=== PATIENT | female | born 2000 | race Caucasian/White ===

== ENCOUNTER 2025-06-17 02:55 | Emergency (ER) | payer OTHER ==
[~2025-06-17] VITALS: Ht 177.8 cm; Wt 127.0 kg
[2025-06-17] MEDS: SODIUM CHLORIDE 0.9% 1000ML 1,000 ML IV ONE (03:57)
[2025-06-17] MEDS: ONDANSETRON HCL INJ 2MG/ML 2ML 2 MG/ML VIAL IV STA (03:57)
[2025-06-17] MEDS ORDERED: IOPAMIDOL 370 MG/ML 100 ML INFUS..BTL INJ ONE (04:07)
[2025-06-17] MEDS ORDERED: CEFTRIAXONE 1 GM VIAL ONE (07:24)
[2025-06-17] MEDS ORDERED: MACROBID 100 M100 MG PO (07:52)
[2025-06-17] MEDS ORDERED: PANTOPRAZOLE SO40 MG PO (07:52)
[2025-06-17] MEDS ORDERED: ONDANSETRON ODT4 MG PO (07:52)
[2025-06-17] MEDS ORDERED: TYLENOL325 MG PO (07:52)
[2025-06-17 07:57] VITALS: PULSE 50; RESP 18; TEMP 97.9; O2SAT 99
== END 2025-06-17 08:05 | disposition home or self-care (01) ==
LOC: FSED 03:35
DX: R10.11 Right upper quadrant pain (principal); N39.0 Urinary tract infection, site not specified; R16.0 Hepatomegaly, not elsewhere classified; G35 Multiple sclerosis; G40.909 Epilepsy, unspecified, not intractable, without status epilepticus; E66.9 Obesity, unspecified; F17.210 Nicotine dependence, cigarettes, uncomplicated
CPT/HCPCS: 74177; 76705; 80048; 81003; 81025; 85025; 96374; 99284; J0696; J2405; J7030; Q9967